=== PATIENT | female | born 1965 ===

== ENCOUNTER 2017-03-01 08:51 | Emergency (ER) | payer SELFPAY ==
[2017-03-01 08:51] VITALS: BMI 31.1
[2017-03-01 08:56] VITALS: BP 125/78; PULSE 84; RESP 18; TEMP 97.9; O2SAT 100
--- NOTE | 2017-03-01 10:06 | ED PDOC ---
Upper Extremity Pain/Injury Time Seen by Provider: 03/01/17 09:10 Chief Complaint (Nursing): Upper Extremity Problem/Injury Chief Complaint (Provider): Upper Extremity Problem/Injury History Per: Patient History/Exam Limitations: no limitations Onset/Duration Of Symptoms: Days Current Symptoms Are (Timing): Still Present Quality: "Pain" Severity: Moderate Exacerbating Factor(s): Movement Additional Complaint(s): Patient is a 51 year old female who presents to ED for ongoing right shoulder since October-November of 2016. 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 Yesterday patient received a mammogram which required her to manipulate the arm, now with worsening pain. Denies fall, numbness or tingling. Notes she as been wearing the slings as instructed. Past Medical History Reviewed: Historical Data, Nursing Documentation, Vital Signs Vital Signs: Last Vital Signs Temp 97.9 F 03/01/17 09:27 Pulse 84 03/01/17 09:27 Resp 18 03/01/17 09:27 BP 125/78 03/01/17 09:27 Pulse Ox 100 03/01/17 09:27 - Medical History PMH: No Chronic Diseases Denies: Depression - Surgical History Surgical History: No Surg Hx - Family History Family History: States: No Known Family Hx - Home Medications Home Medications: Ambulatory Orders Medication Instructions Recorded Amoxicillin/Clavulanate [Augmentin 1 tab PO BID #20 tab 04/12/12 875 MG-125 MG] Methocarbamol [Robaxin] 500 mg PO TID #14 tab 11/04/16 Prednisone [Deltasone] 20 mg PO DAILY #3 tablet 11/04/16 traMADol [Ultram] 50 mg PO TID #7 tab 11/04/16 Acetaminophen/Oxycodone Hydr 1 tab PO Q6 PRN #15 tab 03/01/17 [Percocet 10/325 mg Tab] - Allergies Allergies/Adverse Reactions: Allergies Allergy/AdvReac Type Severity Reaction Status Date / Time No Known Allergies Allergy Verified 03/01/17 09:27 Review of Systems ROS Statement: Except As Marked, All Systems Reviewed And Found Negative Constitutional: Negative for: Fever, Chills Cardiovascular: Negative for: Chest Pain Gastrointestinal: Negative for: Nausea Musculoskeletal: Positive for: Shoulder Pain. Negative for: Arm Pain Skin: Negative for: Rash Neurological: Negative for: Weakness, Numbness Physical Exam - Reviewed Nursing Documentation Reviewed: Yes Vital Signs Reviewed: Yes - Physical Exam Appears: Positive for: Non-toxic, No Acute Distress Skin: Positive for: Normal Color, Warm Eye Exam: Positive for: Normal appearance Neck: Positive for: Normal, Painless ROM, Supple Extremity: Positive for: Normal ROM, Tenderness ([place] to proximal and mid right humerous with edema and loss of RPM to shoulder. Elbow and forearm WNL). Negative for: Deformity Neurologic/Psych: Positive for: Alert, Oriented. Negative for: Motor/Sensory Deficits - ECG O2 Sat by Pulse Oximetry: 100 (RA) Pulse Ox Interpretation: Normal Medical Decision Making Medical Decision Making: Time: 929 Initial impression: Worsening of Chronic pain r/o displacement Initial plan: Previous charts reviewed including MRI and Xrya from January 2017 -- Motrin PO -- Xray XRay reveals large bony destructive lesion prox mid L humerus, prior MRI report viewed also from [facility] [place] january. D/w Dr Figueroa of [facility] clinic, has onc referral and ortho scheduled mid march. D/w Dr Ramirez who viewed XRays recommended oncologic ortho referral as out of his scope. [facility] limb salvage and onc clinic called, d/w Yenni JOHNSON at [phone], will see this at 11a. 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 Pt ask risk of dependence but bony cancer pain is severe and patient already on medication at home (ran out). Scribe Attestation: Documented by Kitty Villalba acting as a scribe for Ankur Zambrano DO. Scribe Attestation: All medical record entries made by the Scribe were at my direction and personally dictated by me. I have reviewed the chart and agree that the record accurately reflects my personal performance of the history, physical exam, medical decision making, and the department course for this patient. I have also personally directed, reviewed, and agree with the discharge instructions and disposition. Disposition - Clinical Impression Clinical Impression: Neoplasm of humerus - Patient ED Disposition Is Patient to be Admitted: No Counseled Patient/Family Regarding: Studies Performed, Diagnosis, Need For Followup, Rx Given - Disposition Referrals: Dennis Ramirez MD [Staff Provider] - Disposition: Routine/Home Disposition Time: 11:45 Condition: STABLE Additional Instructions: You have an appointment scheduled with orthopedic oncology at [facility] this at 11am. Go to the ortho clinic at [address] [facility] in [place]. Contact is [phone]. ELIZABETH Hyman is expecting you. You will need to bring all reports and images of your arm. (CDs provided). Wear sling. Tienes patricia david programada con oncologa ortopdica en [facility] nereyda jueves a las 11am. Vaya a la clnica orto en [facility] [address] [place] [address]. El contacto es [phone]. ELIZABETH Hyman te est esperando. Tendr que traer todos los informes e imgenes de gutierrez brazo. (CDs proporcionados) . Prescriptions: Acetaminophen/Oxycodone Hydr [Percocet 10/325 mg Tab] 1 tab PO Q6 PRN #15 tab PRN Reason: Pain, Severe (8-10) Instructions: Arm Fracture in Adults (ED) Print Language: DIVEHI
--- NOTE | 2017-03-01 11:53 | RAD ---
PROCEDURE: Radiographs of the right humerus. HISTORY: R humeral lytic lesion worsening pain COMPARISON: Correlation made with bone survey 02/28/2017 performed at [facility] comparison no mall also made with plain film radiographs right humerus 02/22/2017 FINDINGS: BONES: The current study reveals a large approximately 6 x 1.9 cm elliptical shaped lytic/expansile lesion within the proximal 1/3 -- 1/2 of the left humeral shaft. There appears to be some surrounding the cortical destructive changes and what could represent overlying cortical new bone A pathologic fracture through the lesion cannot be completely excluded on this study. Rule out metastatic lesion versus multiple myeloma or lymphoma/leukemia. Clinical correlation recommended. SOFT TISSUES: Normal. OTHER FINDINGS: None. IMPRESSION: Large elliptical shaped lytic lesion within the left humeral diaphysis as described. Pathologic fracture cannot be completely excluded. Rule out metastatic deposit, multiple myeloma lymphoma and leukemia
== END 2017-03-01 12:24 | disposition home or self-care (01) ==
LOC: H.ER 08:51
DX: D16.01 Benign neoplasm of scapula and long bones of right upper limb (principal); G89.29 Other chronic pain